=== PATIENT | male | born 1945 | race Caucasian/White ===

== ENCOUNTER 2017-10-26 12:14 | Observation (INO) | payer OTHER, MEDICARE ==
[~2017-10-26] VITALS: Ht 170.2 cm; Wt 81.4 kg
[2017-10-26 12:37] LABS: HEMATOCRIT 48.1 % (38.0-50.0); HEMOGLOBIN 17.4 G/DL (12.5-16.6); MCHC 36.2 G/DL (30.0-36.0); MCV 93.9 FL (86-99); PLATELET COUNT 93 K/uL (156-360); RBC DIS.WIDTH-CV 13.2 % (11.8-14.6); RED BLOOD COUNT 5.12 M/uL (4.00-5.50); WHITE BLOOD COUNT 5.6 K/uL (4.1-10.2)
[2017-10-26 12:48] LABS: CHLORIDE 103 mEq/L (99-109); SODIUM 136 mEq/L (136-147)
[2017-10-26 12:50] LABS: GLUCOSE 101 mg/dL (70-99)
[2017-10-26 12:53] LABS: CREATININE 1.1 mg/dL (0.6-1.3)
[2017-10-26 12:54] LABS: UREA NITROGEN (BUN) 17 mg/dL (9-23)
[2017-10-26 12:56] LABS: GFR ESTIMATE (CALCULATED) > 59 mL/min/ (58.99-99999)
[2017-10-26 13:02] LABS: TROP-I INTERPRETATION NEGATIVE; TROPONIN-I 0.03 ng/mL (0.0-0.30)
[2017-10-26] MEDS ORDERED: LIPOFEN50 MG PO (16:06)
[2017-10-26] MEDS ORDERED: VYTORIN 10/41 TABLET PO (16:08)
[2017-10-26] MEDS ORDERED: LOTENSIN20 MG PO (16:09)
[2017-10-26] MEDS ORDERED: TOPROL XL50 MG PO (16:10)
[2017-10-26] MEDS ORDERED: ASPIR 8181 M1 PO (16:11)
[2017-10-26] MEDS ORDERED: VITAMIN B-121000 MC3 PO (16:13)
[2017-10-26 16:25] VITALS: BP 159/74
[2017-10-26 18:40] LABS: SERUM ETHYL ALCOHOL < 10 mg/dL
[2017-10-26 19:00] VITALS: BP 112/69
[2017-10-26 19:10] LABS: HDL CHOLESTEROL 19 MG/DL (Desirable>=40); LDL CHOLESTEROL 109 mg/dL (Desirable<100); NON-HDL CHOLESTEROL 147 mg/dL (Desirable<160); TOTAL CHOLESTEROL 166 mg/dL (Desirable<200); TRIGLYCERIDES 189 MG/DL (Normal: <150)
[2017-10-26 19:16] LABS: TROP-I INTERPRETATION NEGATIVE; TROPONIN-I 0.03 ng/mL (0.0-0.30)
[2017-10-27 00:06] VITALS: BP 97/53
[2017-10-27 01:03] LABS: TROP-I INTERPRETATION NEGATIVE; TROPONIN-I 0.03 ng/mL (0.0-0.30)
[2017-10-27 03:06] VITALS: BP 114/69
[2017-10-27 04:32] VITALS: BP 119/59
[2017-10-27 07:31] VITALS: BP 121/67
[2017-10-27 10:09] LABS: HEMOGLOBIN A1c (GLYCOHEMOGLOB) 5.6 % (Below 5.7)
[2017-10-27 10:53] VITALS: BP 116/64
[2017-10-27] MEDS ORDERED: METOPROLOL TART25 MG PO (13:58)
[2017-10-27] MEDS ORDERED: PRAVASTATIN SOD40 MG PO (13:58)
[2017-10-27] MEDS ORDERED: LISINOPRIL10 MG PO (13:58)
[2017-10-27] MEDS ORDERED: ASPIR-LOW81 MG PO (13:58)
[2017-10-27 15:20] VITALS: BP 118/68
== END 2017-10-27 17:30 | disposition home or self-care (01) ==
LOC: EME 12:14 → EDOF 14:55 → 5WEST 14:55 → EDOF 14:55 → ENRESERV 15:01 → 5WEST 16:19
PROVIDERS: Internal Medicine
DX: R07.89 Other chest pain (principal); I25.10 Atherosclerotic heart disease of native coronary artery without angina pectoris; Z95.1 Presence of aortocoronary bypass graft; Z91.19 Patient's noncompliance with other medical treatment and regimen; D69.6 Thrombocytopenia, unspecified; I11.9 Hypertensive heart disease without heart failure; F17.210 Nicotine dependence, cigarettes, uncomplicated; Z79.82 Long term (current) use of aspirin; R06.02 Shortness of breath; Z82.49 Family history of ischemic heart disease and other diseases of the circulatory system; I27.20 Pulmonary hypertension, unspecified; E78.5 Hyperlipidemia, unspecified; Z86.73 Personal history of transient ischemic attack (TIA), and cerebral infarction without residual deficits
CPT/HCPCS: 71046; 80048; 80061; 83036; 83880; 84484; 85027; 93005; 93306; 99281; 99284; G0378; G0480; J1650; J7040